=== PATIENT | male | born 1985 | race American Indian/Alaskan Native ===

== ENCOUNTER 2017-01-06 15:13 | Emergency (ER) | payer BC, MEDICAID ==
--- NOTE | 2017-01-06 17:05 | XRay Report ---
FINAL REPORT EXAM: XR CHEST ROUTINE 2V HISTORY: cough TECHNIQUE: Two view chest PA and lateral PRIORS: None. FINDINGS: Cardiac and mediastinal contours are unremarkable. No focal pulmonary infiltrate is identified. No pleural fluid collection seen. Pulmonary vasculature is unremarkable. IMPRESSION: Negative two-view chest
--- NOTE | 2017-01-06 20:20 | Emergency Department Report ---
- General Chief Complaint: Upper Respiratory Infection Stated Complaint: COUGHING Time Seen by Provider: 01/06/17 18:41 Source: patient Mode of arrival: Ambulatory Limitations: No Limitations - History of Present Illness Initial Comments: This is a 31-year-old male nontoxic, well nourished in appearance, no acute signs of distress presents to the ED with c/o of productive cough and runny nose x1.5 weeks. Patient denies any sick contact. Patient denies any nausea, vomiting, chest pain, shortness of breath, sore throat, fever, chills, difficulty breathing, stiff neck, headache, blurry vision, fever, chills, numbness or tingling. Describes productive cough as yellow/green mucus production. Patient states allergies to codeine with past medical history of diabetes and hypertension. Patient denies recent travels. Denies hemoptysis, calf pain, or tenderness. MD Complaint: cough, rhinorrhea -: week(s) (1.5) Severity: mild Severity scale (0 -10): 0 Consistency: constant Improves With: nothing Worsens With: nothing Associated Symptoms: rhinorrhea, nasal congestion, cough. denies: fever, chills , myalgias, diaphoresis, headache, sore throat, stiff neck, chest pain, shortness of breath, abdominal pain, nausea, vomiting, diarrhea, dysuria, rash, confusion, right sweats, weight loss, epistaxis, hoarseness, ear pain Treatments Prior to Arrival: none - Related Data Previous Rx's Medication Instructions Recorded Last Taken Type HYDROcodone/APAP 10-325 [[place] 1 each PO Q6HR PRN #10 tablet 08/28/15 Unknown Rx 10/325] Penicillin Vk [Veetids TAB] 500 mg PO QID #28 tablet 08/28/15 Unknown Rx Amoxicillin 500 mg PO BID #20 capsule 01/06/17 Unknown Rx Benzonatate [Tessalon Perle] 100 mg PO Q8H #20 capsule 01/06/17 Unknown Rx Allergies Allergy/AdvReac Type Severity Reaction Status Date / Time No Known Allergies Allergy Verified 01/06/17 15:26 ED Review of Systems ROS: Stated complaint: COUGHING Other details as noted in HPI Constitutional: denies: chills, fever Eyes: denies: eye pain, eye discharge, vision change ENT: denies: ear pain, throat pain Respiratory: cough. denies: shortness of breath, wheezing Cardiovascular: denies: chest pain, palpitations Endocrine: no symptoms reported Gastrointestinal: denies: abdominal pain, nausea, diarrhea Genitourinary: denies: urgency, dysuria Musculoskeletal: denies: back pain, joint swelling, arthralgia Skin: denies: rash, lesions Neurological: denies: headache, weakness, paresthesias Psychiatric: denies: anxiety, depression Hematological/Lymphatic: denies: easy bleeding, easy bruising ED Past Medical Hx - Past Medical History Previous Medical History?: No - Surgical History Past Surgical History?: No - Social History Smoking Status: Current Every Day Smoker Substance Use Type: None - Medications Home Medications: Home Medications Medication Instructions Recorded Confirmed Last Taken Type HYDROcodone/APAP 10-325 [[place] 1 each PO Q6HR PRN #10 tablet 08/28/15 Unknown Rx 10/325] Penicillin Vk [Veetids TAB] 500 mg PO QID #28 tablet 08/28/15 Unknown Rx Amoxicillin 500 mg PO BID #20 capsule 01/06/17 Unknown Rx Benzonatate [Tessalon Perle] 100 mg PO Q8H #20 capsule 01/06/17 Unknown Rx ED Physical Exam - General Limitations: No Limitations General appearance: alert, in no apparent distress - Head Head exam: Present: atraumatic, normocephalic, normal inspection - Eye Eye exam: Present: normal appearance, PERRL, EOMI. Absent: scleral icterus, conjunctival injection, nystagmus, periorbital swelling, periorbital tenderness Pupils: Present: normal accommodation - ENT ENT exam: Present: normal exam, normal orophraynx, mucous membranes moist, TM's normal bilaterally, normal external ear exam - Neck Neck exam: Present: normal inspection, full ROM. Absent: tenderness, meningismus, lymphadenopathy, thyromegaly - Respiratory Respiratory exam: Present: normal lung sounds bilaterally. Absent: respiratory distress, wheezes, rales, rhonchi, stridor, chest wall tenderness, accessory muscle use, decreased breath sounds, prolonged expiratory - Cardiovascular Cardiovascular Exam: Present: regular rate, normal rhythm, normal heart sounds. Absent: irregular rhythm, systolic murmur, diastolic murmur, rubs, gallop - GI/Abdominal GI/Abdominal exam: Present: soft, normal bowel sounds. Absent: distended, tenderness, guarding, rebound, rigid, diminished bowel sounds - Rectal Rectal exam: Present: deferred - Extremities Exam Extremities exam: Present: normal inspection, full ROM, normal capillary refill. Absent: tenderness, pedal edema, joint swelling, calf tenderness - Back Exam Back exam: Present: normal inspection, full ROM. Absent: tenderness, CVA tenderness (R), CVA tenderness (L), muscle spasm, paraspinal tenderness, vertebral tenderness, rash noted - Neurological Exam Neurological exam: Present: alert, oriented X3, CN II-XII intact, normal gait, reflexes normal - Psychiatric Psychiatric exam: Present: normal affect, normal mood - Skin Skin exam: Present: warm, dry, intact, normal color. Absent: rash ED Course Vital Signs 01/06/17 15:26 Temperature 99 F Pulse Rate 108 H Respiratory 18 Rate Blood Pressure 147/92 O2 Sat by Pulse 99 Oximetry - Reevaluation(s) Reevaluation #1: 01/06/17 20:19 Patient is speaking in full sentences with no signs of distress noted. ED Medical Decision Making - Medical Decision Making This is a 31-year-old male that presents with upper resp infection. Patient was examined by me and patient is stable. Chest xray has obtained and dictated by radiologist with normal exam. Patient was notified of xray results with no further questions noted by the patient. Patient is d/c with amox and Tessalon Perles. Patient was instructed to Follow-up with a primary care doctor in 3-5 days or if symptoms worsen and continue return to emergency room as soon as possible. At time time of discharge, the patient does not seem toxic or ill in appearance. No acute signs of distress noted. Patient agrees to discharge treatment plan of care. No further questions noted by the patient. Critical care attestation.: If time is entered above; I have spent that time in minutes in the direct care of this critically ill patient, excluding procedure time. ED Disposition Clinical Impression: Upper respiratory infection Qualifiers: URI type: unspecified URI Qualified Code(s): J06.9 - Acute upper respiratory infection, unspecified Disposition: TO HOME OR SELFCARE Is pt being admited?: No Does the pt Need Aspirin: No Condition: Stable Instructions: Benzonatate (By mouth), Amoxicillin (By mouth), Upper Respiratory Infection (ED) Additional Instructions: Follow-up with a primary care doctor in 3-5 days or if symptoms worsen and continue return to emergency room as soon as possible. Prescriptions: Amoxicillin 500 mg PO BID #20 capsule Benzonatate [Tessalon Perle] 100 mg PO Q8H #20 capsule Referrals: PRIMARY CARE, [Primary Care Provider] - 3-5 Days LOI HALL MD [Staff Physician] - 3-5 Days [facility] [place] [Outside] - 3-5 Days [facility] [Outside] - 3-5 Days Forms: Work/School Release Form(ED)
[2017-01-06 20:24] VITALS: BP 141/87
== END 2017-01-06 20:30 | disposition home or self-care (01) ==
LOC: ED 15:13
DX: J06.9 Acute upper respiratory infection, unspecified (principal); F17.200 Nicotine dependence, unspecified, uncomplicated
CPT/HCPCS: 71020

== ENCOUNTER 2019-11-14 11:02 | Emergency (ER) | payer MEDICAID ==
[2019-11-14 11:22] VITALS: BP 136/95
--- NOTE | 2019-11-14 12:34 | Emergency Department Report ---
ED Eye Problem HPI - General Chief complaint: Eye Problems Stated complaint: EYE PAIN Time Seen by Provider: 11/14/19 12:25 Source: patient Mode of arrival: Ambulatory Limitations: No Limitations - History of Present Illness Initial comments: 34-year-old male reports yellow drainage off and on for 3 months from his left eye. Woke up with right eye now with drainage. He denies pain ,trauma no known injuries no visual changes. chief complaint: other (drainage) -: month(s) (3 months) Location: both eyes If Injury: none Eye Symptoms: discharge Severity: mild Consistency: constant Associated Symptoms: none Treatments Prior to Arrival: none - Related Data Previous Rx's Medication Instructions Recorded Last Taken Type HYDROcodone/APAP 10-325 [[place] 1 each PO Q6HR PRN #10 tablet 08/28/15 Unknown Rx 10/325] Penicillin Vk [Veetids TAB] 500 mg PO QID #28 tablet 08/28/15 Unknown Rx Amoxicillin 500 mg PO BID #20 capsule 01/06/17 Unknown Rx Benzonatate [Tessalon Perle] 100 mg PO Q8H #20 capsule 01/06/17 Unknown Rx Tobramycin 0.3% [Tobrex] 1 drop OP Q8HR #1 bottle 07/28/19 Unknown Rx Polymyxin B Sulf/Trimethoprim 1 drop OP Q4HR 7 Days #1 bottle 11/14/19 Unknown Rx [Polytrim Eye Drops] Allergies Allergy/AdvReac Type Severity Reaction Status Date / Time No Known Allergies Allergy Verified 01/06/17 15:26 ED Review of Systems ROS: Stated complaint: EYE PAIN Other details as noted in HPI Comment: All other systems reviewed and negative Constitutional: denies: chills, fever Eyes: eye discharge. denies: eye pain, vision change ENT: denies: ear pain Respiratory: denies: cough, shortness of breath, SOB with exertion Endocrine: denies: no symptoms reported Gastrointestinal: denies: abdominal pain, nausea, vomiting Skin: denies: rash Neurological: denies: headache, weakness, paresthesias, abnormal gait ED Past Medical Hx - Past Medical History Previous Medical History?: No - Surgical History Past Surgical History?: No - Social History Smoking Status: Current Every Day Smoker Substance Use Type: None - Medications Home Medications: Home Medications Medication Instructions Recorded Confirmed Last Taken Type HYDROcodone/APAP 10-325 [[place] 1 each PO Q6HR PRN #10 tablet 08/28/15 Unknown Rx 10/325] Penicillin Vk [Veetids TAB] 500 mg PO QID #28 tablet 08/28/15 Unknown Rx Amoxicillin 500 mg PO BID #20 capsule 01/06/17 Unknown Rx Benzonatate [Tessalon Perle] 100 mg PO Q8H #20 capsule 01/06/17 Unknown Rx Tobramycin 0.3% [Tobrex] 1 drop OP Q8HR #1 bottle 07/28/19 Unknown Rx Polymyxin B Sulf/Trimethoprim 1 drop OP Q4HR 7 Days #1 bottle 11/14/19 Unknown Rx [Polytrim Eye Drops] ED Physical Exam - General Limitations: No Limitations General appearance: alert, in no apparent distress - Eye Eye exam: Present: PERRL, EOMI, other (mucoid drainage). Absent: scleral icterus, periorbital swelling, periorbital tenderness Pupils: Present: normal accommodation - ENT ENT exam: Present: normal exam, mucous membranes moist, TM's normal bilaterally - Neck Neck exam: Present: full ROM - Respiratory Respiratory exam: Present: normal lung sounds bilaterally, respiratory distress - Cardiovascular Cardiovascular Exam: Present: regular rate, normal heart sounds - Neurological Exam Neurological exam: Present: alert, oriented X3 - Skin Skin exam: Present: warm, dry, intact, normal color ED Course Vital Signs 11/14/19 11:20 Temperature 98.5 F Pulse Rate 91 H Respiratory 18 Rate Blood Pressure 136/95 O2 Sat by Pulse 99 Oximetry ED Medical Decision Making - Medical Decision Making bilateral bacterial conjuctivits Critical Care Time: No Critical care attestation.: If time is entered above; I have spent that time in minutes in the direct care of this critically ill patient, excluding procedure time. ED Disposition Clinical Impression: Bacterial conjunctivitis of both eyes Disposition: DC-01 TO HOME OR SELFCARE Is pt being admited?: No Does the pt Need Aspirin: No Condition: Stable Instructions: Conjunctivitis (ED) Prescriptions: Polymyxin B Sulf/Trimethoprim [Polytrim Eye Drops] 1 drop OP Q4HR 7 Days #1 bottle Referrals: BRI MAI MD [Staff Physician] - 3-5 Days Time of Disposition: 12:42
== END 2019-11-14 13:00 | disposition home or self-care (01) ==
LOC: ED 11:02
DX: B99.8 Other infectious disease (principal); H10.89 Other conjunctivitis
CPT/HCPCS: 99282

== ENCOUNTER 2019-12-11 12:49 | Emergency (ER) | payer MEDICAID ==
[2019-12-11 14:06] VITALS: BP 127/81
[2019-12-11] MEDS ORDERED: LIDOCAINE-MPF (1%) 10 MG/1 ML VIAL 5 ML INFILTRATI ONE (17:25)
[2019-12-11] MEDS ORDERED: IBUPROFEN 600 MG TAB PO ONE (17:26)
--- NOTE | 2019-12-11 17:28 | Emergency Department Report ---
- General Chief complaint: Abdominal Pain Stated complaint: BACK ABSCESS Time Seen by Provider: 12/11/19 17:23 Source: patient Mode of arrival: Ambulatory Limitations: No Limitations - History of Present Illness Initial comments: The patient was evaluated in the emergency department for symptoms described in the history of present illness. He/she was evaluated in the context of the global COVID-19 pandemic, which necessitated consideration that the patient might be at risk for infection with the virus that causes COVID-19. Institutional protocols and algorithms that pertain to the evaluation of patients at risk for COVID-19 are in a state of rapid change based on information released by regulatory bodies including the CDC and federal and state organizations. These policies and algorithms were followed during the patient's care in the emergency department. Please note that these policies, procedures and recommendations changed on a rapid basis. 34-year-old -[place] male has a 2-week history of a bump on his back that is painful. Patient states he has never had a history of these. He denies any fever chills no drainage. No past medical history. MD complaint: abscess/boil Onset/Timin -: week(s) Location: back Severity scale (0 -10): 8 Quality: stabbing, aching Consistency: intermittent Improves with: none Worsens with: palpation Context: none Associated symptoms: denies other symptoms - Related Data Previous Rx's Medication Instructions Recorded Last Taken Type HYDROcodone/APAP 10-325 [[place] 1 each PO Q6HR PRN #10 tablet 08/28/15 Unknown Rx 10/325] Penicillin Vk [Veetids TAB] 500 mg PO QID #28 tablet 08/28/15 Unknown Rx Amoxicillin 500 mg PO BID #20 capsule 01/06/17 Unknown Rx Benzonatate [Tessalon Perle] 100 mg PO Q8H #20 capsule 01/06/17 Unknown Rx Tobramycin 0.3% [Tobrex] 1 drop OP Q8HR #1 bottle 07/28/19 Unknown Rx Polymyxin B Sulf/Trimethoprim 1 drop OP Q4HR 7 Days #1 bottle 11/14/19 Unknown Rx [Polytrim Eye Drops] Ibuprofen [Motrin 600 MG tab] 600 mg PO Q8H PRN #30 tablet 12/11/19 Unknown Rx cephALEXin [Keflex] 500 mg PO Q8HR 10 Days #30 cap 12/11/19 Unknown Rx Allergies Allergy/AdvReac Type Severity Reaction Status Date / Time No Known Allergies Allergy Verified 01/06/17 15:26 Abscess Boil HPI - HPI Chief Complaint: Abdominal Pain Stated Complaint: BACK ABSCESS Time Seen by Provider: 12/11/19 17:23 Home Medications: Previous Rx's Medication Instructions Recorded Last Taken Type HYDROcodone/APAP 10-325 [[place] 1 each PO Q6HR PRN #10 tablet 08/28/15 Unknown Rx 10/325] Penicillin Vk [Veetids TAB] 500 mg PO QID #28 tablet 08/28/15 Unknown Rx Amoxicillin 500 mg PO BID #20 capsule 01/06/17 Unknown Rx Benzonatate [Tessalon Perle] 100 mg PO Q8H #20 capsule 01/06/17 Unknown Rx Tobramycin 0.3% [Tobrex] 1 drop OP Q8HR #1 bottle 07/28/19 Unknown Rx Polymyxin B Sulf/Trimethoprim 1 drop OP Q4HR 7 Days #1 bottle 11/14/19 Unknown Rx [Polytrim Eye Drops] Ibuprofen [Motrin 600 MG tab] 600 mg PO Q8H PRN #30 tablet 12/11/19 Unknown Rx cephALEXin [Keflex] 500 mg PO Q8HR 10 Days #30 cap 12/11/19 Unknown Rx Allergies/Adverse Reactions: Allergies Allergy/AdvReac Type Severity Reaction Status Date / Time No Known Allergies Allergy Verified 01/06/17 15:26 ED Review of Systems ROS: Stated complaint: BACK ABSCESS Other details as noted in HPI Comment: All other systems reviewed and negative ED Past Medical Hx - Past Medical History Previous Medical History?: No - Social History Smoking Status: Current Every Day Smoker Substance Use Type: None - Medications Home Medications: Home Medications Medication Instructions Recorded Confirmed Last Taken Type HYDROcodone/APAP 10-325 [[place] 1 each PO Q6HR PRN #10 tablet 08/28/15 Unknown Rx 10/325] Penicillin Vk [Veetids TAB] 500 mg PO QID #28 tablet 08/28/15 Unknown Rx Amoxicillin 500 mg PO BID #20 capsule 01/06/17 Unknown Rx Benzonatate [Tessalon Perle] 100 mg PO Q8H #20 capsule 01/06/17 Unknown Rx Tobramycin 0.3% [Tobrex] 1 drop OP Q8HR #1 bottle 07/28/19 Unknown Rx Polymyxin B Sulf/Trimethoprim 1 drop OP Q4HR 7 Days #1 bottle 11/14/19 Unknown Rx [Polytrim Eye Drops] Ibuprofen [Motrin 600 MG tab] 600 mg PO Q8H PRN #30 tablet 12/11/19 Unknown Rx cephALEXin [Keflex] 500 mg PO Q8HR 10 Days #30 cap 12/11/19 Unknown Rx ED Physical Exam - General Limitations: No Limitations General appearance: alert, in no apparent distress - Head Head exam: Present: atraumatic, normocephalic - Eye Eye exam: Present: normal appearance - ENT ENT exam: Present: mucous membranes dry - Neck Neck exam: Present: normal inspection, full ROM - Respiratory Respiratory exam: Absent: chest wall tenderness - Extremities Exam Extremities exam: Present: normal inspection, full ROM - Back Exam Back exam: Present: normal inspection - Neurological Exam Neurological exam: Present: alert, oriented X3, normal gait - Psychiatric Psychiatric exam: Present: normal affect, normal mood - Expanded Skin Exam Expanded Type of lesion: Present: abscess Distribution of rash: back Description of rash: Present: tenderness, erythematous, fluctuant, indurated ED Course Vital Signs 12/11/19 14:05 Temperature 98 F Pulse Rate 89 Respiratory 15 Rate Blood Pressure 127/81 [Right] O2 Sat by Pulse 97 Oximetry - I & D Back Type of Procedure: Simple Blade Size: 11 I & D Procedure: betadine prep, sterile drapes applied, sterile dressing applied Progress: Tolerated well ED Medical Decision Making - Medical Decision Making 34-year-old -[place] male has a 2-week history of a bump on his back that is painful. Patient states he has never had a history of these. He denies any fever chills no drainage. No past medical history. Patient has an abscess to his back. Was given ibuprofen for pain management incision and drainage of the back. Patient will be discharged home on Keflex and ibuprofen instructions to increase his water intake. Critical care attestation.: If time is entered above; I have spent that time in minutes in the direct care of this critically ill patient, excluding procedure time. ED Disposition Clinical Impression: Abscess of back Disposition: DC-01 TO HOME OR SELFCARE Is pt being admited?: No Does the pt Need Aspirin: No Condition: Stable Instructions: Abscess (ED) Additional Instructions: Complete antibiotics as prescribed take pain medication as needed and increase your fluid intake. Prescriptions: cephALEXin [Keflex] 500 mg PO Q8HR 10 Days #30 cap Ibuprofen [Motrin 600 MG tab] 600 mg PO Q8H PRN #30 tablet PRN Reason: Pain Referrals: PRIMARY CARE, [Primary Care Provider] - 3-5 Days [facility] [Provider Group] - 3-5 Days [facility] [place] [Outside] - 3-5 Days [facility] [Outside] - 3-5 Days Forms: Work/School Release Form(ED)
[2019-12-11] MEDS ORDERED: DIPHtheria,PERTUSSIS(ACELL),TETANUS VACCINE/PF 0.5 ML VIAL IM ONE (17:30)
== END 2019-12-11 18:53 | disposition home or self-care (01) ==
LOC: ED 12:49
DX: L02.212 Cutaneous abscess of back [any part, except buttock and flank] (principal); F17.200 Nicotine dependence, unspecified, uncomplicated; Z79.1 Long term (current) use of non-steroidal anti-inflammatories (NSAID); Z79.2 Long term (current) use of antibiotics; Z79.899 Other long term (current) drug therapy
CPT/HCPCS: 90471; 90715; 99282